=== PATIENT | male | born 1965 | race Two or more races ===

== ENCOUNTER 2018-06-14 10:18 | Outpatient (CLI) | payer OTHER | END 2018-06-14 10:25 | disposition home or self-care (01) | LOC: SONOGRAMA 10:18 | DX: E04.1 Nontoxic single thyroid nodule (principal) ==

== ENCOUNTER 2018-09-20 14:31 | Outpatient (CLI) | payer OTHER | END 2018-09-20 15:00 | disposition home or self-care (01) | LOC: NUCLEAR 14:31 | DX: C73 Malignant neoplasm of thyroid gland (principal); E89.0 Postprocedural hypothyroidism | CPT/HCPCS: 79005; A9517 ==

== ENCOUNTER 2019-10-09 14:17 | Outpatient (CLI) | payer OTHER | END 2019-10-09 15:00 | disposition home or self-care (01) | LOC: NUCLEAR 14:17 | DX: C73 Malignant neoplasm of thyroid gland (principal) | CPT/HCPCS: 78018; 78020; A9528 ==

== ENCOUNTER 2022-09-26 11:55 | Outpatient (CLI) | payer OTHER | END 2022-09-26 11:58 | disposition home or self-care (01) | LOC: SONOGRAMA 11:55 | PROVIDERS: ATTEND Pathology Anatomic Pathology | DX: D34 Benign neoplasm of thyroid gland (principal); C73 Malignant neoplasm of thyroid gland ==